=== PATIENT | male | born 1995 | race Hispanic/Latino ===

== ENCOUNTER 2023-02-10 12:15 | Emergency (ER) | payer OTHER ==
[~2023-02-10] VITALS: Ht 172.7 cm; Wt 75.0 kg
[2023-02-10] MEDS ORDERED: CYCL7.5T50 PO (12:25)
[2023-02-10] MEDS ORDERED: NEUR300C PO (12:26)
[2023-02-10] MEDS ORDERED: RECT5CRE TOP ×2 (14:29→14:42)
[2023-02-10 14:45] VITALS: BP 126/58; TEMP 98; O2SAT 99
== END 2023-02-10 14:46 | disposition home or self-care (01) ==
LOC: M ED 12:15
DX: K60.2 Anal fissure, unspecified (principal); Z79.891 Long term (current) use of opiate analgesic; Z79.899 Other long term (current) drug therapy

== ENCOUNTER → 2023-09-26 | Outpatient (CLI) | payer OTHER ==
[~2023-09-26] MED LIST: CYCL7.5T50 PO; ISOVUE-370 76% 100ML VIAL As Ordered ONE; NEUR300C PO; RECT5CRE TOP
== END ==
LOC: M RAD 15:39
PROVIDERS: ATTEND Otolaryngology
DX: H93.12 Tinnitus, left ear (principal)